=== PATIENT | male | born 1985 | race Caucasian/White ===

== ENCOUNTER 2020-07-24 16:11 | Emergency (ER) | payer MEDICARE, MEDICAID, SELFPAY ==
[2020-07-24 16:12] VITALS: BP 150/99; PULSE 95; RESP 20; TEMP 36.6; O2SAT 98; BMI 38.0
--- NOTE | 2020-07-24 16:18 | HMH.EDGENADL ---
ED Disposition Clinical Impression: Back pain Qualifiers: Back pain location: back pain in unspecified location Chronicity: chronic Back pain laterality: bilateral Qualified Code(s): M54.9 - Dorsalgia, unspecified; G89.29 - Other chronic pain Disposition: Home, Self-Care Condition on Discharge: Good Instructions: DI for Low Back Pain Additional Instructions: Ibuprofen for pain. Follow-up with your primary care provider, call for appointment. Referrals: Dottie Anderson [Primary Care Provider] - - Critical Care Critical Care Time: No Attestation: On , the high probability of a clinically significant, sudden or life threatening deterioration of the following system(s) required my full and direct attention, intervention and personal management. The time I documented below is in addition to time spent performing reported procedures but includes the following listed in this critical care notation. Medical Decision Making - [place] Inquiry Pt receiving controlled substance: No Vital Signs: 07/24/20 16:12 Temperature 97.9 F Temperature Source Oral Pulse Rate [Left Radial] 95 H Respiratory Rate 20 Blood Pressure [Right Arm] 150/99 H Blood Pressure Mean [Right Arm] 116 Blood Pressure Source [Right Arm] Automatic Cuff Blood Pressure Position [Right Arm] Sitting 02 Sat by Pulse Oximetry 98 Oxygen Delivery Method Room Air - Lab Data Lab Results 07/24/20 16:35: Urine Color Yellow, Urine Appearance Clear, Urine pH 6.0, Ur Specific [place] 1.025, Urine Protein Negative, Urine Glucose (UA) Negative, Urine Ketones Negative, Urine Blood Negative, Urine Nitrate Negative, Urine Bilirubin Negative, Urine Urobilinogen 1.0, Ur Leukocyte Esterase Negative, Urine RBC None, Urine WBC None, Ur Squamous Epith Cells None, Urine Bacteria None 07/24/20 16:35: WBC 10.1, RBC 5.79, Hgb 16.3, Hct 49.2, MCV 85.1, MCH 28.2, MCHC 33.1, RDW 13.3, Plt Count 395, MPV 7.0 L, Neut % (Auto) 64.9, Lymph % (Auto) 27.4, [place] % (Auto) 5.0, Eos % (Auto) 1.9, Baso % (Auto) 0.8, Neut # (Auto) 6.6, Lymph # (Auto) 2.8, [place] # (Auto) 0.5, Eos # (Auto) 0.2, Baso # (Auto) 0.1 07/24/20 16:35: Sodium 141, Potassium 3.7, Chloride 100, Carbon Dioxide 33 H, Anion Gap 11.7, BUN 18, Creatinine 1.20, Estimated Creat Clear 149, Estimated GFR 70, Est GFR ( Amer) 84, Glucose 109 H, Calcium 10.2, Total Bilirubin 0.5, AST 58, ALT 121 H, Alkaline Phosphatase 145 H, Total Protein 9.0 H, Albumin 5.0, Globulin 4.0 H, Albumin/Globulin Ratio 1.3, Lipase 114 Result diagrams: 07/24/20 16:35 07/24/20 16:35 - CT Data CT Scan: Abdomen, Pelvis Time Received: 17:[address] Reviewed: Yes: I have viewed the radiologist's interpretation Findings Narrative: CLINICAL INDICATION: flank pain COMPARISON: CT ABDPELW/O CT ABD PELVIS W/O CONTRAST from 03/29/2013 TECHNIQUE: Axial images obtained with sagittal and coronal reformats. All CT scans at the facility use one or more dose reduction, viz: automated exposure control, ma/kV adjustment per patient size (including targeted exams where dose is matched to indication, i.e. head), or iterative reconstruction technique. FINDINGS: Lower thorax: The lower lung lan are clear and there is no pleural fluid. ABDOMEN: Liver: No masses or biliary dilatation. Gallbladder: Nondistended. No radio opaque stones. Pancreas: No masses or peripancreatic fluid collections. Spleen: unremarkable Adrenals: unremarkable Kidneys/ureters: The kidneys are normal size and no calculi and there is no obstructive uropathy. ABDOMEN & PELVIS: Stomach bowel: The stomach is moderately distended with ingested food particles. The small bowel appears normal. The appendix is normal. There is moderate scattered stool seen throughout the colon. There are mild pre diverticular changes of the sigmoid colon with accentuation of the haustra folds. Peritoneum: There is a tiny umbilical hernia containing fat only. Lymph nodes: No enlarge
--- NOTE | 2020-07-24 16:29 | CT_ITS ---
PROCEDURE: CT ABDOMEN PELVIS WO CON CLINICAL INDICATION: flank pain COMPARISON: CT ABDPELW/O CT ABD PELVIS W/O CONTRAST from 03/29/2013 TECHNIQUE: Axial images obtained with sagittal and coronal reformats. All CT scans at the facility use one or more dose reduction, viz: automated exposure control, ma/kV adjustment per patient size (including targeted exams where dose is matched to indication, i.e. head), or iterative reconstruction technique. FINDINGS: Lower thorax: The lower lung lan are clear and there is no pleural fluid. ABDOMEN: Liver: No masses or biliary dilatation. Gallbladder: Nondistended. No radio opaque stones. Pancreas: No masses or peripancreatic fluid collections. Spleen: unremarkable Adrenals: unremarkable Kidneys/ureters: The kidneys are normal size and no calculi and there is no obstructive uropathy. ABDOMEN & PELVIS: Stomach bowel: The stomach is moderately distended with ingested food particles. The small bowel appears normal. The appendix is normal. There is moderate scattered stool seen throughout the colon. There are mild pre diverticular changes of the sigmoid colon with accentuation of the haustra folds. Peritoneum: There is a tiny umbilical hernia containing fat only. Lymph nodes: No enlarged lymph nodes apparent. Vasculature: No evidence of abdominal aortic aneurysm. No retroperitoneal hemorrhage evident. Bones: No acute fracture PELVIS: Reproductive: unremarkable Bladder: The urinary bladder is decompressed but otherwise appears normal. The prostate is normal. Appendix: Normal IMPRESSION: Possible mild constipation, no acute a abdominal or pelvic pathology identified Dictated by: Dr. Marvin Mcgovern MD 07/24/2020 17:07 Dr. Marvin Mcgovern MD in [place] 07/24/2020 17:07
[2020-07-24 16:42] LABS: Microscopic, Urine URINE MICROSCOPIC (MICROSCOPIC)
[2020-07-24 16:46] LABS: Appearance,Urine CLEAR (Clear); Bilirubin,Urine Negative (Negative); Blood, Urine Negative (Negative); Color,Urine YELLOW (Yellow); Glucose,Urine (UA) Negative (Negative); Ketones,Urine Negative (Negative); Leukocyte Esterase,Urine Negative (Negative); Nitrate,Urine Negative (Negative); Protein,Urine Negative (Negative); Specific Gravity, Urine 1.025 (1.005-1.030)
[2020-07-24 17:01] LABS: Basophils # 0.1 K/mm3 (0-0.2); Basophils % 0.8 % (0.1-2.0); Eosinophils # 0.2 K/mm3 (0.0-0.4); Eosinophils % 1.9 % (0.1-12.0); Hematocrit 49.2 % (42.0-52.0); Hemoglobin 16.3 g/dL (14.1-18.0); Lymphocytes # 2.8 K/mm3 (0.7-4.5); Lymphocytes % 27.4 % (10-50); Mean Corpuscular HGB Conc 33.1 g/dL (31.8-35.4); Mean Corpuscular Hemoglobin 28.2 pg (27.0-31.2); Mean Corpuscular Volume 85.1 fl (80-94); Monocytes # 0.5 K/mm3 (0.1-1.0); Neutrophils # 6.6 K/mm3 (1.8-7.8); Neutrophils % 64.9 % (37.0-80.0); Platelet Count 395 K/mm3 (142-424); Red Blood Count 5.79 M/mm3 (4.60-6.20); Red Cell Distribution Width 13.3 % (11.5-17.5); White Blood Count 10.1 K/mm3 (4.8-10.8)
[2020-07-24 17:02] LABS: Chloride 100 mmol/L (98-107)
[2020-07-24 17:03] LABS: Potassium 3.7 mmoL/L (3.5-5.1); Sodium 141 mmol/L (136-145)
[2020-07-24 17:05] LABS: Alanine Aminotransferase 121 U/L (12-78); Alkaline Phosphatase 145 U/L (38-126); Anion Gap 11.7 mEq/L (5-15); Aspartate Amino Transferase 58 U/L (17-59); Bilirubin,Total 0.5 mg/dl (0.2-1.3); Blood Urea Nitrogen 18 mg/dl (9-20); Carbon Dioxide 33 mmol/L (22.0-30.0); Creatinine Clearance Estimated 149 mL/min (50-200); Estimated Glomerular Filt Rate 70 ml/min (>60); GFR (African American) 84 ML/MIN (>60); Lipase 114 U/L (23-300)
[2020-07-24 17:06] LABS: Albumin/Globulin Ratio 1.3 (1.1-1.8); Calcium 10.2 mg/dl (8.4-10.2); Glucose 109 mg/dl (74-100)
[2020-07-24 17:39] VITALS: BP 116/84; PULSE 76; RESP 18; TEMP 36.6; O2SAT 97
== END 2020-07-24 17:40 | disposition home or self-care (01) ==
PROVIDERS: Emergency Provider Emergency Medicine; PCP Family Medicine
DX: M54.9 Dorsalgia, unspecified (principal); G89.29 Other chronic pain; Z88.8 Allergy status to other drugs, medicaments and biological substances
CPT/HCPCS: 74176; 80053; 81001; 83690; 85025; 99283

== ENCOUNTER 2021-03-23 16:30 | Emergency (ER) | payer MEDICARE, MEDICAID, SELFPAY ==
[2021-03-23 16:39] VITALS: BP 151/96; PULSE 85; RESP 18; TEMP 36.6; O2SAT 98; BMI 42.8
[2021-03-23 16:56] LABS: Microscopic, Urine URINE MICROSCOPIC (MICROSCOPIC)
[2021-03-23 16:59] LABS: Appearance,Urine CLEAR (Clear); Basophils # 0.1 K/mm3 (0-0.2); Basophils % 0.7 % (0.1-2.0); Bilirubin,Urine Negative (Negative); Blood, Urine Negative (Negative); Color,Urine YELLOW (Yellow); Eosinophils # 0.1 K/mm3 (0.0-0.4); Eosinophils % 1.1 % (0.1-12.0); Glucose,Urine (UA) Negative (Negative); Hematocrit 47.7 % (42.0-52.0); Hemoglobin 15.7 g/dL (14.1-18.0); Ketones,Urine Negative (Negative); Leukocyte Esterase,Urine Negative (Negative); Lymphocytes % 20.3 % (10-50); Mean Corpuscular HGB Conc 32.9 g/dL (31.8-35.4); Mean Corpuscular Hemoglobin 28.3 pg (27.0-31.2); Mean Corpuscular Volume 85.9 fl (80-94); Mean Platelet Volume 7.8 fl (7.4-10.4); Monocytes # 0.4 K/mm3 (0.1-1.0); Monocytes % 4.1 % (1.7-9.3); Neutrophils # 7.1 K/mm3 (1.8-7.8); Neutrophils % 73.7 % (37.0-80.0); Nitrate,Urine Negative (Negative); Platelet Count 398 K/mm3 (142-424); Protein,Urine Negative (Negative); Red Blood Count 5.55 M/mm3 (4.60-6.20); Red Cell Distribution Width 13.6 % (11.5-17.5); Urobilinogen,Urine 0.2 EU/dl (0.2); White Blood Count 9.6 K/mm3 (4.8-10.8)
[2021-03-23 17:08] LABS: Bacteria,Urine Trace /lpf
[2021-03-23 17:12] LABS: Alanine Aminotransferase 58 U/L (12-78); Albumin Level 4.5 g/dl (3.5-5.0); Albumin/Globulin Ratio 1.2 (1.1-1.8); Alkaline Phosphatase 117 U/L (38-126); Aspartate Amino Transferase 92 U/L (17-59); Bilirubin,Total 0.5 mg/dl (0.2-1.3); Blood Urea Nitrogen 16 mg/dl (9-20); Calcium 9.4 mg/dl (8.4-10.2); Carbon Dioxide 31 mmol/L (22.0-30.0); Chloride 100 mmol/L (98-107); Creatinine Clearance Estimated 117 mL/min (50-200); Estimated Glomerular Filt Rate 97 ml/min (>60); GFR (African American) 118 ML/MIN (>60); Globulin 3.8 g/dL (1.3-3.2); Glucose 106 mg/dl (74-100); Sodium 143 mmol/L (136-145); Total Protein,Serum 8.3 g/dl (6.3-8.2)
--- NOTE | 2021-03-23 19:09 | HMH.EDGENADL ---
ED Disposition Instructions: DI for Acute Abdominal Pain Attestation: On 03/23/21, the high probability of a clinically significant, sudden or life threatening deterioration of the following system(s) required my full and direct attention, intervention and personal management. The time I documented below is in addition to time spent performing reported procedures but includes the following listed in this critical care notation. Medical Decision Making Vital Signs: 03/23/21 16:39 Temperature 97.8 F Temperature Source Oral Pulse Rate [Right] 85 Respiratory Rate 18 Blood Pressure [Right Arm] 151/96 H Blood Pressure Mean [Right Arm] 114 02 Sat by Pulse Oximetry 98 Oxygen Delivery Method Room Air - Lab Data Lab Results 03/23/21 16:45: Urine Color Yellow, Urine Appearance Clear, Urine pH 7.0, Ur Specific [place] 1.020, Urine Protein Negative, Urine Glucose (UA) Negative, Urine Ketones Negative, Urine Blood Negative, Urine Nitrate Negative, Urine Bilirubin Negative, Urine Urobilinogen 0.2, Ur Leukocyte Esterase Negative, Urine RBC None, Urine WBC None, Ur Squamous Epith Cells None, Urine Bacteria Trace 03/23/21 16:45: WBC 9.6, RBC 5.55, Hgb 15.7, Hct 47.7, MCV 85.9, MCH 28.3, MCHC 32.9, RDW 13.6, Plt Count 398, MPV 7.8, Neut % (Auto) 73.7, Lymph % (Auto) 20.3, [place] % (Auto) 4.1, Eos % (Auto) 1.1, Baso % (Auto) 0.7, Neut # (Auto) 7.1, Lymph # (Auto) 2.0, [place] # (Auto) 0.4, Eos # (Auto) 0.1, Baso # (Auto) 0.1 03/23/21 16:45: Sodium 143, Potassium 4.0, Chloride 100, Carbon Dioxide 31 H, Anion Gap 16.0 H, BUN 16, Creatinine 0.90, Estimated Creat Clear 117, Estimated GFR 97, Est GFR ( Amer) 118, Glucose 106 H, Calcium 9.4, Total Bilirubin 0.5, AST 92 H, ALT 58, Alkaline Phosphatase 117, Total Protein 8.3 H, Albumin 4.5, Globulin 3.8 H, Albumin/Globulin Ratio 1.2 Result diagrams: 03/23/21 16:45 03/23/21 16:45 General Adult HPI - General Chief complaint: Abdominal Pain Stated complaint: abd pain Time Seen by Provider: 03/23/21 19:09 Mode of Arrival: Ambulatory Limitations: No Limitations Description of Symptoms (Recalled from ER Triage Doc. by RN): c/o intense upper abdominal pain that started ~1 hour ago, pt took a pepcid at home but states it made it worse. denies N/V/D & fevers. - Related Data Home Medications Medication Instructions Recorded Confirmed Buprenorphine HCl/Naloxone HCl 1.5 film SL DAILY 07/24/20 07/24/20 [Buprenorp-Nalox 8-2 mg Sl Film] Omeprazole [Omeprazole 20mg Tab] 20 mg PO DAILY 07/24/20 07/24/20 Allergies Allergy/AdvReac Type Severity Reaction Status Date / Time TRAMADOL Allergy Intermediate I-ITCHING Uncoded 07/17/17 15:02 From HALDOL Allergy Unknown I-RASH Uncoded 07/17/17 15:02 [facility] History - Hepatitis A Screen Drug use history?: No High risk sexual behaviors?: No History of sexually transmitted infection?: No Currently employed?: No Childcare worker?: No Do you have indoor plumbing?: Yes Do you have electricity?: Yes Attestation statement:: This patient has been screened for Hepatitis A risk factors. Medical History: Denies:: Diabetes Mellitus Type 1, Diabetes Mellitus Type 2 - Social History Smoking Status: Current every day smoker Tobacco Type: smokeless tobacco # Packs/Day (cigarettes): 1 Alcohol Intake: never Substance Use Type: heroin, IV drugs Occupational Status: disabled
[2021-03-23 19:10] VITALS: BP 0/0; PULSE 0; RESP 0; TEMP -17.7; TEMP 0
--- NOTE | 2021-03-23 19:19 | PC.NURSE ---
Pt not in room at this time, dispatch called.
== END 2021-03-23 19:30 | disposition left against medical advice (07) ==
PROVIDERS: Emergency Provider Emergency Medicine; PCP Family Medicine
DX: Z53.21 Procedure and treatment not carried out due to patient leaving prior to being seen by health care provider (principal); R10.10 Upper abdominal pain, unspecified; R03.0 Elevated blood-pressure reading, without diagnosis of hypertension
CPT/HCPCS: 80053; 81001; 85025; 99282

== ENCOUNTER → 2022-12-14 23:11 | Outpatient (CLI) | payer MEDICARE, SELFPAY ==
[2022-12-14 18:23] LABS: Basophils # 0.1 K/mm3 (0-0.2); Basophils % 1.1 % (0.1-2.0); Eosinophils # 0.3 K/mm3 (0.0-0.4); Hematocrit 44.8 % (42.0-52.0); Lymphocytes # 2.5 K/mm3 (0.7-4.5); Lymphocytes % 39.8 % (10-50); Mean Corpuscular HGB Conc 33.5 g/dL (31.8-35.4); Mean Corpuscular Hemoglobin 28.2 pg (27.0-31.2); Mean Corpuscular Volume 84.2 fl (80-94); Mean Platelet Volume 8.2 fl (7.4-10.4); Monocytes # 0.4 K/mm3 (0.1-1.0); Monocytes % 6.2 % (1.7-9.3); Neutrophils # 3.1 K/mm3 (1.8-7.8); Neutrophils % 48.9 % (37.0-80.0); Platelet Count 354 K/mm3 (142-424); Red Blood Count 5.32 M/mm3 (4.60-6.20); Red Cell Distribution Width 13.4 % (11.5-17.5); White Blood Count 6.4 K/mm3 (4.8-10.8)
[2022-12-14 18:30] LABS: Alanine Aminotransferase 64 U/L (12-78); Albumin Level 4.2 g/dl (3.5-5.0); Albumin/Globulin Ratio 1.4 (1.1-1.8); Alkaline Phosphatase 109 U/L (38-126); Anion Gap 19.1 mEq/L (5-15); Aspartate Amino Transferase 51 U/L (17-59); Bilirubin,Total 0.5 mg/dl (0.2-1.3); Blood Urea Nitrogen 11 mg/dl (9-20); Calcium 9.1 mg/dl (8.4-10.2); Carbon Dioxide 30 mmol/L (22.0-30.0); Chloride 96 mmol/L (98-107); Chol/HDL Ratio 2.2 (1-3.5); Cholesterol 141 mg/dl (140-200); Estimated Glomerular Filt Rate 110 ml/min (>60); GFR (African American) 133 ML/MIN (>60); Glucose 103 mg/dl (74-100); HDL Cholesterol 63 mg/dl (40-60); Potassium 4.1 mmoL/L (3.5-5.1); Sodium 141 mmol/L (136-145); Total Protein,Serum 7.2 g/dl (6.3-8.2); Triglycerides 117 mg/dl (30-150); Uric Acid 4.4 mg/dl (3.5-8.5); VLDL Cholesterol 23 mg/dL (0-40)
[2022-12-14 18:39] LABS: Creatinine,Urine Random 294 mg/dL (Not Estab.)
[2022-12-14 18:43] LABS: Direct LDL Cholesterol 61.62 mg/dL (100-129)
[2022-12-14 18:51] LABS: 25-OH Vitamin D, Total 19.5 ng/mL (30-100)
[2022-12-14 18:52] LABS: Hemoglobin A1C 5.2 % (4.0-6.0)
[2022-12-14 19:04] LABS: Thyroid Stimulating Hormone 1.69 uIU/mL (0.465-4.68)
[2022-12-14 19:23] LABS: Vitamin B12 464 pg/mL (239-931)
[2022-12-16 12:10] LABS: Testosterone,Total 50 ng/dL (264-916)
== END ==
PROVIDERS: PCP Nurse Practitioner; Visit Provider Nurse Practitioner
DX: E66.9 Obesity, unspecified (principal); G89.29 Other chronic pain; I10 Essential (primary) hypertension; K21.9 Gastro-esophageal reflux disease without esophagitis; M54.9 Dorsalgia, unspecified; R53.83 Other fatigue; R79.89 Other specified abnormal findings of blood chemistry; R73.01 Impaired fasting glucose; Z68.41 Body mass index [BMI] 40.0-44.9, adult
CPT/HCPCS: 80053; 80061; 82043; 82306; 82570; 82607; 83036; 84403; 84443; 84550; 85025

== ENCOUNTER → 2022-12-19 12:02 | Outpatient (CLI) | payer MEDICARE, SELFPAY | LOC: RT 12:04 | PROVIDERS: PCP Nurse Practitioner; Visit Provider Nurse Practitioner | DX: R00.2 Palpitations (principal); R94.31 Abnormal electrocardiogram [ECG] [EKG] | CPT/HCPCS: 93225; 93226 ==

== ENCOUNTER → 2023-01-02 14:11 | Outpatient (CLI) | payer MEDICARE, SELFPAY | LOC: RT 14:11 | PROVIDERS: PCP Nurse Practitioner; Visit Provider Nurse Practitioner | DX: R00.2 Palpitations (principal); R94.31 Abnormal electrocardiogram [ECG] [EKG] | CPT/HCPCS: 93306 ==

== ENCOUNTER → 2023-02-14 10:06 | Outpatient (CLI) | payer MEDICARE, SELFPAY ==
[2023-02-14 20:06] LABS: Basophils # 0.1 K/mm3 (0-0.2); Basophils % 0.9 % (0.1-2.0); Eosinophils # 0.3 K/mm3 (0.0-0.4); Eosinophils % 4.4 % (0.1-12.0); Hematocrit 43.5 % (42.0-52.0); Hemoglobin 14.1 g/dL (14.1-18.0); Lymphocytes # 2.3 K/mm3 (0.7-4.5); Lymphocytes % 40.3 % (10-50); Mean Corpuscular HGB Conc 32.4 g/dL (31.8-35.4); Mean Corpuscular Hemoglobin 27.8 pg (27.0-31.2); Mean Corpuscular Volume 85.7 fl (80-94); Mean Platelet Volume 7.9 fl (7.4-10.4); Monocytes # 0.4 K/mm3 (0.1-1.0); Monocytes % 6.3 % (1.7-9.3); Neutrophils # 2.8 K/mm3 (1.8-7.8); Neutrophils % 48.2 % (37.0-80.0); Platelet Count 352 K/mm3 (142-424); Red Blood Count 5.07 M/mm3 (4.60-6.20); Red Cell Distribution Width 13.6 % (11.5-17.5); White Blood Count 5.8 K/mm3 (4.8-10.8)
[2023-02-16 13:17] LABS: Estradiol 41.6 pg/mL (7.6-42.6); Prolactin 19.9 ng/mL (4.0-15.2)
[2023-02-20 04:19] LABS: Testosterone, Total, LC/MS 549 ng/dL (.)
[2023-02-21 19:14] LABS: 1,25 Dihydroxy Vitamin D 56 pg/mL (.); 1,25-Dihydroxy, Vitamin D-2 <10 pg/mL (.); 1,25-Dihydroxy, Vitamin D-3 54 pg/mL (.)
== END ==
PROVIDERS: PCP Nurse Practitioner; Visit Provider Nurse Practitioner
DX: G89.29 Other chronic pain (principal); M54.9 Dorsalgia, unspecified; R53.83 Other fatigue; R79.89 Other specified abnormal findings of blood chemistry; E66.9 Obesity, unspecified; Z68.41 Body mass index [BMI] 40.0-44.9, adult
CPT/HCPCS: 82652; 82670; 84146; 84403; 85025

== ENCOUNTER 2023-07-31 10:26 | Outpatient (CLI) | payer MEDICARE, SELFPAY ==
[2023-07-31 19:42] LABS: Basophils # 0.1 K/mm3 (0-0.2); Basophils % 0.9 % (0.1-2.0); Eosinophils # 0.2 K/mm3 (0.0-0.4); Eosinophils % 3.4 % (0.1-12.0); Hematocrit 44.3 % (42.0-52.0); Hemoglobin 14.5 g/dL (14.1-18.0); Lymphocytes # 1.8 K/mm3 (0.7-4.5); Lymphocytes % 32.3 % (10-50); Mean Corpuscular HGB Conc 32.8 g/dL (31.8-35.4); Mean Corpuscular Hemoglobin 28.8 pg (27.0-31.2); Mean Corpuscular Volume 87.8 fl (80-94); Mean Platelet Volume 8.6 fl (7.4-10.4); Monocytes # 0.4 K/mm3 (0.1-1.0); Monocytes % 6.4 % (1.7-9.3); Neutrophils # 3.3 K/mm3 (1.8-7.8); Platelet Count 367 K/mm3 (142-424); Red Blood Count 5.04 M/mm3 (4.60-6.20); Red Cell Distribution Width 13.6 % (11.5-17.5); White Blood Count 5.7 K/mm3 (4.8-10.8)
[2023-07-31 21:46] LABS: Alanine Aminotransferase 35 U/L (12-78); Albumin/Globulin Ratio 1.4 (1.1-1.8); Alkaline Phosphatase 97 U/L (38-126); Anion Gap 6.7 mEq/L (5-15); Aspartate Amino Transferase 32 U/L (17-59); Bilirubin,Total 0.3 mg/dl (0.2-1.3); Blood Urea Nitrogen 11 mg/dl (9-20); Calcium 8.6 mg/dl (8.4-10.2); Carbon Dioxide 32 mmol/L (22.0-30.0); Chloride 102 mmol/L (98-107); Estimated Glomerular Filt Rate 128 ml/min (>60); GFR (African American) 154 ML/MIN (>60); Globulin 2.9 g/dL (1.3-3.2); Glucose 84 mg/dl (74-100); Potassium 3.7 mmoL/L (3.5-5.1); Sodium 137 mmol/L (136-145); Total Protein,Serum 6.9 g/dl (6.3-8.2)
[2023-07-31 22:17] LABS: Thyroid Stimulating Hormone 1.85 uIU/mL (0.465-4.68)
== END 2023-07-31 23:59 ==
LOC: LAB.DROPOF 08-01 10:29
PROVIDERS: PCP Nurse Practitioner; Visit Provider Nurse Practitioner
DX: K59.00 Constipation, unspecified (principal); R10.32 Left lower quadrant pain; R40.0 Somnolence
CPT/HCPCS: 80053; 84443; 85025

== ENCOUNTER 2023-08-15 08:33 | Outpatient (CLI) | payer MEDICARE, SELFPAY ==
--- NOTE | 2023-08-15 08:33 | CT_ITS ---
FINAL REPORT CLINICAL HISTORY: constipation, LLQ abdominal pain COMPARISON: 07/26/2020 FINDINGS: CT OF THE ABDOMEN AND PELVIS WITH CONTRAST Axial CT images of the abdomen and pelvis were obtained after the administration of oral and iv contrast. Coronal and sagittal reformatted images were also obtained and reviewed.This study was performed with techniques to keep radiation doses as low as reasonably achievable (ALARA). Individualized dose reduction techniques using automated exposure control or adjustment of mA and/or kV according to the patient's size were employed. Abdomen: The lung bases are clear. The heart is normal in size. The liver has an unremarkable appearance, with mild biliary ductal enlargement, likely post cholecystectomy change. The gallbladder has been surgically resected. The spleen is unremarkable. No adrenal mass is present. The pancreas has an unremarkable appearance. The kidneys are normal, without evidence of mass or hydronephrosis. The aorta is normal in caliber. There is no free fluid or adenopathy. No mass or abnormal fluid collection is seen. Pelvis: The appendix is normal in appearance. A moderate amount of stool is noted throughout the colon. The urinary bladder is unremarkable. No inflammatory process is seen. There is no evidence of mass or adenopathy. There is no evidence of bowel obstruction. IMPRESSION: Moderate stool burden in the colon. Mild biliary ductal dilatation, likely post cholecystectomy change. Reviewed, Interpreted and Dictated by Bobby Burgos III, MD Transcribed by Paula Yoon Authenticated and [facility]
[2023-08-15] MEDS: IOPAMIDOL-370 (76%);100ML BOTTLE 75 ML IV (09:10)
[2023-08-15] MEDS: SODIUM CHLORIDE 0.9% 10ML SYR (RAD ONLY) 10 ML IV (09:10)
== END 2023-08-15 23:59 ==
LOC: RAD 08:33
PROVIDERS: PCP Nurse Practitioner; Visit Provider Nurse Practitioner
DX: K59.00 Constipation, unspecified (principal); R10.32 Left lower quadrant pain
CPT/HCPCS: 74177; Q9967

== ENCOUNTER 2024-05-22 18:34 | Emergency (ER) | payer MEDICARE, MEDICAID, SELFPAY ==
[2024-05-22 18:35] VITALS: BP 139/84; PULSE 77; RESP 18; TEMP 37.2; O2SAT 99; BMI 40.1
--- NOTE | 2024-05-22 18:44 | ED_ITS ---
Discharge Plan Disposition Patient Disposition: Home, Self-Care Condition: Good Prescriptions Prescriptions: New doxycycline hyclate 100 mg capsule 100 mg PO BID 7 Days Qty: 14 0RF No Action buprenorphine-naloxone 8-2 mg tablet, sublingual 1.25 tab sublingual DAILY omeprazole 20 mg capsule,delayed release(DR/EC) 20 mg PO DAILY Deplin FC 15 mg capsule 15 mg PO DAILY Qty: 30 2RF temazepam 15 mg capsule 15 mg PO HS PRN (Reason: sleep) Qty: 30 0RF losartan 50 mg tablet 50 mg PO DAILY Qty: 90 2RF Referrals Follow up/Referrals: Aria Kidd APRN [Primary Care Provider] - See instructions Activity Restrictions/Add. Instructions Additional Instructions/Restrictions: As we discussed, it is possible your symptoms are attributable to UTI, given that you are having some pain with urination and pain that starts in your kidney area and radiates to her groin. Your urinalysis does show some bacteria in your urine. There are not other systemic signs of infection and your CT does not show any kidney stones. I have added on gonorrhea and Chlamydia testing and after our discussion we will go ahead and treat a potential UTI as if it were an STI as this will cover common organisms and sexually transmitted organisms. Please follow-up with your PCP. Please return with any new or worsening symptoms. Clinical Impressions Clinical Impression: Dysuria Instructions Patient Instructions: DI for Urinary Tract Infection (UTI) Print Language Print Language: Sinhala Discharge ED Provider: Joseph Zarate General Adult HPI General Chief complaint: Urogenital-Male Stated complaint: Pain left side,lower back radiating down to groin Time Seen by Provider: 05/22/24 18:44 History of Present Illness HPI narrative: The patient presents with a chief complaint of left-sided pain under the rib, radiating to the back and occasionally to the testicles, which has been ongoing for about a year. The pain is intermittent and comes and goes. He also reports experiencing nausea, frequent urination, and difficulty initiating urination. He mentions that it hurts to urinate. He has a history of multiple doctor visits for this issue, with a presumptive diagnosis of kidney stones. However, no definitive diagnosis has been made. He has had a previous CT scan, but it was focused on the gastrointestinal area due to concurrent stomach pain at the time. He is unsure if the kidneys were visualized during that scan. The CT scan was performed at [facility] in [place]. Additionally, he denies any injuries, cough, shortness of breath, numbness, or tingling in the legs. The pain does not radiate down the leg but remains localized around the left rib and back area. He describes the pain as a straight shot down to the testicle area. He also indicates a specific spot on the ribs that is painful. Please note that above description of symptoms, in this electronic medical record under categorization of recalled from ER triage doctor by RN are reflective of an initial nursing assessment, however, is not reflective of my full history and physical exam that was personally taken and clarified. Consequentially, this preceding description of symptoms, which may include the patient's categorized chief complaint in the EMR, do not reflect my personal clinical impression, and the ultimate description of history of present illness and patient stated complaints should be deferred to this section of the note. Unless stated otherwise or congruent with this section of the note, additional signs, symptoms, or incongruence should be interpreted as inaccurate with my clinical impression. Related Data Home Medications ?Medication ?Instructions ?Recorded ?Confirmed buprenorphine 8 mg-naloxone 2 mg 1.25 tab sublingual DAILY 03/04/24 04/28/24 sublingual tablet omeprazole 20 mg capsule,delayed 20 mg PO DAILY 03/04/24 04/28/24 release Previous Rx's ?Medication ?Instructions ?Recorded losartan 50 mg tablet 50 mg PO DAILY #90 tabs 02/29/24 levomefolate calcium 15 mg capsule 15 mg PO DAILY #30 caps 03/18/24 (Deplin FC) temazepam 15 mg capsule 15 mg PO HS PRN sleep #30 caps 04/28/24 doxycycline hyclate 100 mg capsule 100 mg PO BID 7 days #14 caps 05/22/24 Allergies Allergy/AdvReac Type Severity Reaction Status Date / Time TRAMADOL Allergy Intermediate I-ITCHING Uncoded 04/28/24 14:27 From HALDOL Allergy Unknown I-RASH Uncoded 04/28/24 14:27 [facility] Disclaimer: The information contained in this section may have been updated after the patient was seen, as this information can be updated by other users. Medical History Nightmares associated with chronic post-traumatic stress disorder Reynaldo described having Night Terrors every night that he wakes up in a panic since returning from [place]. OCD (obsessive compulsive disorder) Reynaldo explained that he has has OCD sxs since he was a child where he counts numbers and sees shapes, especially corners. MDD (major depressive disorder), recurrent episode, with atypical features Reynaldo reported having depression since his teen years. 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 Constipation Vitamin D deficiency PTSD (post-traumatic stress disorder) Reynaldo reported having PTSD sxs since 2008 when returning from deployment in [place] for the . History of heroin abuse Reynaldo reported being 8 yrs clean of Heroin as of 01/29/2024. He currently takes Suboxone 8 mg for 8 yrs, which has helped him maintain recovery. He is working to wean himself off of the Suboxone. Vision disturbance Snoring Has daytime drowsiness Snoring Has daytime drowsiness Abnormal EKG Palpitations Fatigue Low testosterone Obesity GERD (gastroesophageal reflux disease) Essential hypertension Surgical History Hx of cholecystectomy Social History Smoking Status: Never smoker alcohol intake: never substance use type: former substance user, heroin and IV drugs current occupational status: disabled Travel in the last 8 weeks: None Other Medical History Have you received the Flu Vaccine for this season: No Have you received the Pneumonia Vaccine: No ROS Obtained: Yes other As per HPI Physical Exam General General appearance: alert and in no apparent distress Head Head exam: atraumatic and normocephalic Eye Eye exam: Present normal appearance Neck Neck exam: Present normal inspection Chest Chest inspection: Present normal inspection and symmetric chest wall rise Respiratory Respiratory exam: Present normal lung sounds bilaterally; Absent respiratory distress Cardiovascular Cardiovascular exam: Present regular rate and normal rhythm Abdominal Exam Abdominal exam: Present soft Neurological Exam Neurological exam: Present alert and oriented X3 Psychiatric Psychiatric exam: Present normal affect and normal mood Skin Skin exam: Present warm and dry Other Other exam information: Left CVA tenderness to palpation, no midline spinal tenderness to palpation Medical Decision Making Medical Records Medical records reviewed: Yes I reviewed the patient's medical records. Screening: Per USPSTF and CDC recommendations, given the prevalence of disease in our region, it is our hospital?s policy to screen for HIV and viral Hepatitis for all patients aged 18 and over and those with ongoing risk factors. [place] Inquiry Pt receiving controlled substance: No Vital Signs: 05/22/24 18:35 05/22/24 20:54 Temperature 98.9 F 98.0 F Temperature Source Oral Oral Pulse Rate 80 Pulse Rate [Right] 77 Respiratory Rate 18 18 Blood Pressure 138/85 Blood Pressure [Right Arm] 139/84 Blood Pressure Mean [Right Arm] 102 02 Sat by Pulse Oximetry 99 Oxygen Delivery Method Room Air Room Air Lab Data Lab Results 05/22/24 18:40: Urine Color Yellow, Urine Appearance Clear, Urine pH 6.0, Ur Specific [place] >= 1.030, Urine Protein Negative, Urine Glucose (UA) Negative, Urine Ketones Negative, Urine Blood Negative, Urine Nitrate Negative, Urine Bilirubin Negative, Urine Urobilinogen 1.0, Ur Leukocyte Esterase Negative, Urine RBC 3-5, Urine WBC Occasional, Ur Squamous Epith Cells Occasional, Urine Bacteria 1+, Urine Mucus 1+ 05/22/24 19:05: WBC 6.7, RBC 5.28, Hgb 15.1, Hct 44.1, MCV 83.6, MCH 28.7, MCHC 34.4, RDW 13.8, Plt Count 317, MPV 7.2 L, Neut % (Auto) 50.8, Lymph % (Auto) 36.8, [place] % (Auto) 6.7, Eos % (Auto) 4.3, Baso % (Auto) 1.3, Neut # (Auto) 3.4, Lymph # (Auto) 2.5, [place] # (Auto) 0.4, Eos # (Auto) 0.3, Baso # (Auto) 0.1, Sodium 140, Potassium 3.7, Chloride 102, Carbon Dioxide 34 H, Anion Gap 7.7, BUN 10, Creatinine 0.90, Estimated Creat Clear 204, Estimated GFR 95, Est GFR ( Amer) 116, Glucose 100, Calcium 8.9, Total Bilirubin 0.6, AST 29, ALT 28, Alkaline Phosphatase 72, Total Protein 7.7, Albumin 4.3, Globulin 3.4 H, Albumin/Globulin Ratio 1.3, Lipase 49, HIV 1&2 Antibody Rapid Nonreactive 05/22/24 19:05 05/22/24 19:05 Orders (Tests/Meds): ED MEDICATIONS Discontinued Medications Generic Name Dose Route Start Last Admin Trade Name Freq PRN Reason Stop Dose Admin Ceftriaxone Sodium 500 mg 05/22/24 20:34 05/22/24 20:36 Ceftriaxone 500mg Vial IM 05/22/24 20:35 Not Given ONCE ONE Ceftriaxone Sodium 500 mg/ 50 mls @ 100 mls/hr 05/22/24 20:36 05/22/24 20:44 Sodium Chloride IV 05/22/24 20:37 100 mls/hr ONCE ONE Administration Ketorolac Tromethamine 15 mg 05/22/24 18:51 05/22/24 19:31 Ketorolac 30mg/Ml Vial IV 05/22/24 18:52 15 mg ONCE ONE Administration Lidocaine HCl 0 ml 05/22/24 20:34 05/22/24 20:36 Lidocaine 1% 5ml Pf Vial IM 05/22/24 20:35 Not Given ONCE ONE ORDERS Category Date Time Status CT abdomen pelvis wo con Stat Cat Scan 05/22/24 18:51 Completed CBC w/Auto Diff [Complete Blood Count Auto Diff] Stat Lab 05/22/24 19:05 Completed CMP [Comprehensive Metabolic Panel] Stat Lab 05/22/24 19:05 Completed HIV (1&2) Antibody Rapid Stat Lab 05/22/24 19:05 Completed Hep C Ab with Reflex to RNA Stat Lab 05/22/24 19:05 Received Lipase Stat Lab 05/22/24 19:05 Completed Urinalysis and Microscopic Stat Lab 05/22/24 18:40 Completed Urine Culture Stat Micro 05/22/24 18:40 Received Medical Decision Narrative: Patient with history and exam per above presenting for evaluation of left flank pain radiating to groin, dysuria Diagnoses considered include urolithiasis, pyelonephritis, cystitis, mechanical low back pain, among others ED workup and treatment included: ED MEDICATIONS Discontinued Medications Generic Name Dose Route Start Last Admin Trade Name Freq PRN Reason Stop Dose Admin Ceftriaxone Sodium 500 mg 05/22/24 20:34 05/22/24 20:36 Ceftriaxone 500mg Vial IM 05/22/24 20:35 Not Given ONCE ONE Ceftriaxone Sodium 500 mg/ 50 mls @ 100 mls/hr 05/22/24 20:36 05/22/24 20:44 Sodium Chloride IV 05/22/24 20:37 100 mls/hr ONCE ONE Administration Ketorolac Tromethamine 15 mg 05/22/24 18:51 05/22/24 19:31 Ketorolac 30mg/Ml Vial IV 05/22/24 18:52 15 mg ONCE ONE Administration Lidocaine HCl 0 ml 05/22/24 20:34 05/22/24 20:36 Lidocaine 1% 5ml Pf Vial IM 05/22/24 20:35 Not Given ONCE ONE ORDERS Category Date Time Status CT abdomen pelvis wo con Stat Cat Scan 05/22/24 18:51 Completed CBC w/Auto Diff [Complete Blood Count Auto Diff] Stat Lab 05/22/24 19:05 Completed CMP [Comprehensive Metabolic Panel] Stat Lab 05/22/24 19:05 Completed HIV (1&2) Antibody Rapid Stat Lab 05/22/24 19:05 Completed Hep C Ab with Reflex to RNA Stat Lab 05/22/24 19:05 Received Lipase Stat Lab 05/22/24 19:05 Completed Urinalysis and Microscopic Stat Lab 05/22/24 18:40 Completed Urine Culture Stat Micro 05/22/24 18:40 Received Labs were independently interpreted by me, significant for pyuria, bacteriuria Imaging was independently visualized and interpreted by me, significant for no acute findings Please refer to radiology report for full details. My clinical impression at this time is most consistent with likely cystitis, possible sexually transmitted infection, will treat empirically after shared decision making I discussed my clinical impression with patient and answered all questions. At this time, the evidence for any other entities in the differential is insufficient to warrant any further testing or ED observation. This was explained to the patient. The patient was advised that persistent or worsening symptoms require further evaluation. Critical Care Critical Care Time Critical Care Time: No
--- NOTE | 2024-05-22 18:51 | CT_ITS ---
PROCEDURE INFORMATION: Exam: CT Abdomen And Pelvis Without Contrast Exam date and time: 05/22/2024 6:57 PM Age: 38 years old Clinical indication: Pain; Other: Lt flank; Additional info: L flank pain, dysuria TECHNIQUE: Imaging protocol: Computed tomography of the abdomen and pelvis without contrast. Total images: 334 Radiation optimization: All CT scans at this facility use at least one of these dose optimization techniques: automated exposure control; mA and/or kV adjustment per patient size (includes targeted exams where dose is matched to clinical indication); or iterative reconstruction. COMPARISON: CT ABDOMEN PELVIS W CON 08/15/2023 8:56 AM FINDINGS: Lungs: Lung bases are clear. Heart: Normal heart size. Liver: Normal. No mass. Gallbladder and biliary ducts: Status post cholecystectomy. Stable mild biliary ectasia compatible with post cholecystectomy status. Pancreas: Normal. No ductal dilation. Spleen: Calcified splenic granuloma. No splenomegaly. Adrenal glands: Normal. No mass. Kidneys and ureters: No hydronephrosis, nephrolithiasis, or perinephric fluid. No discrete renal mass. No ureteral stones. Stomach and bowel: Unremarkable stomach and duodenum. No ileus or bowel obstruction. Unremarkable small bowel. Unremarkable colon and rectum. Appendix: Normal appendix. Intraperitoneal space: Unremarkable. No free air. No significant fluid collection. Vasculature: The abdominal aorta is normal in caliber. Pelvic phleboliths. Lymph nodes: Unremarkable. No enlarged lymph nodes. Urinary bladder: Collapsed bladder. Reproductive: Nonenlarged prostate. Bones/joints: Moderate degenerative disc disease L4-L5 with secondary mild acquired spinal canal stenosis. No acute osseous abnormality. Soft tissues: Very tiny fat containing umbilical hernia. IMPRESSION: 1. No acute intra-abdominal or pelvic process. 2. No nephrolithiasis or obstructive uropathy. 3. Additional chronic and incidental findings.
[2024-05-22 18:55] LABS: Microscopic, Urine URINE MICROSCOPIC (MICROSCOPIC)
--- NOTE | 2024-05-22 18:55 | PC.NURSE ---
PT TO CT
[2024-05-22 18:56] LABS: Appearance,Urine CLEAR (Clear); Bilirubin,Urine Negative (Negative); Blood, Urine Negative (Negative); Color,Urine YELLOW (Yellow); Glucose,Urine (UA) Negative (Negative); Ketones,Urine Negative (Negative); Leukocyte Esterase,Urine Negative (Negative); Nitrate,Urine Negative (Negative); Protein,Urine Negative (Negative); Specific Gravity, Urine >= 1.030 (1.005-1.030)
--- NOTE | 2024-05-22 19:18 | PC.NURSE ---
pt back from ct scan
[2024-05-22 19:27] LABS: Basophils # 0.1 K/mm3 (0-0.2); Basophils % 1.3 % (0.1-2.0); Eosinophils # 0.3 K/mm3 (0.0-0.4); Eosinophils % 4.3 % (0.1-12.0); Hematocrit 44.1 % (42.0-52.0); Hemoglobin 15.1 g/dL (14.1-18.0); Lymphocytes # 2.5 K/mm3 (0.7-4.5); Lymphocytes % 36.8 % (10-50); Mean Corpuscular HGB Conc 34.4 g/dL (31.8-35.4); Mean Corpuscular Hemoglobin 28.7 pg (27.0-31.2); Mean Corpuscular Volume 83.6 fl (80-94); Mean Platelet Volume 7.2 fl (7.4-10.4); Monocytes # 0.4 K/mm3 (0.1-1.0); Monocytes % 6.7 % (1.7-9.3); Neutrophils # 3.4 K/mm3 (1.8-7.8); Neutrophils % 50.8 % (37.0-80.0); Platelet Count 317 K/mm3 (142-424); Red Blood Count 5.28 M/mm3 (4.60-6.20); Red Cell Distribution Width 13.8 % (11.5-17.5); White Blood Count 6.7 K/mm3 (4.8-10.8)
[2024-05-22 19:28] LABS: Albumin Level 4.3 g/dl (3.5-5.0); Chloride 102 mmol/L (98-107); Potassium 3.7 mmoL/L (3.5-5.1); Sodium 140 mmol/L (136-145)
[2024-05-22 19:30] LABS: Blood Urea Nitrogen 10 mg/dl (9-20)
[2024-05-22 19:31] LABS: Alanine Aminotransferase 28 U/L (12-78); Albumin/Globulin Ratio 1.3 (1.1-1.8); Alkaline Phosphatase 72 U/L (38-126); Anion Gap 7.7 mEq/L (5-15); Aspartate Amino Transferase 29 U/L (17-59); Bilirubin,Total 0.6 mg/dl (0.2-1.3); Carbon Dioxide 34 mmol/L (22.0-30.0); Creatinine Clearance Estimated 204 mL/min (50-200); Estimated Glomerular Filt Rate 95 ml/min (>60); GFR (African American) 116 ML/MIN (>60); Globulin 3.4 g/dL (1.3-3.2); Lipase 49 U/L (23-300); Total Protein,Serum 7.7 g/dl (6.3-8.2)
[2024-05-22] MEDS: KETOROLAC 30MG/ML VIAL 15 MG IV (19:31)
[2024-05-22 19:32] LABS: Bacteria,Urine 1+ /lpf; Mucus,Urine 1+ /lpf; Squamous Epithelial Cell,Urine Occasional #/hpf (0-5); WBC,Urine Occasional #/hpf (0-3)
[2024-05-22 19:32] LABS: Calcium 8.9 mg/dl (8.4-10.2); Glucose 100 mg/dl (74-100)
[2024-05-22] MEDS: SODIUM CHLORIDE 0.9% IV (20:44)
[2024-05-22] MEDS: CEFTRIAXONE SODIUM IV (20:44)
[2024-05-22 20:54] VITALS: BP 138/85; PULSE 80; RESP 18; TEMP 36.7; O2SAT 98
[2024-05-22 21:36] LABS: HIV (1&2) Antibody Rapid NONREACTIVE (NONREACTIVE)
[2024-05-24 08:51] LABS: HCV Ab Non Reactive (Non Reactive)
[2024-05-26 06:11] LABS: Neisseria gonorrhoeae, NAA Negative (Negative)
== END 2024-05-22 21:15 | disposition home or self-care (01) ==
PROVIDERS: Emergency Provider Emergency Medicine; PCP Nurse Practitioner
DX: R30.0 Dysuria (principal); M54.50 Low back pain, unspecified; R11.0 Nausea; R30.9 Painful micturition, unspecified
CPT/HCPCS: 74176; 80053; 81001; 83690; 85025; 86803; 87086; 87389; 87491; 87591; 96374; 96375; 99284; J0696; J1885

== ENCOUNTER 2024-11-13 15:32 | Outpatient (CLI) | payer MEDICARE, MEDICAID, SELFPAY ==
[2024-11-13 18:23] LABS: Basophils # 0.1 K/mm3 (0-0.2); Eosinophils # 0.2 K/mm3 (0.0-0.4); Eosinophils % 2.1 % (0.1-12.0); Hematocrit 44.8 % (42.0-52.0); Hemoglobin 14.6 g/dL (14.1-18.0); Lymphocytes # 2.1 K/mm3 (0.7-4.5); Lymphocytes % 28.4 % (10-50); Mean Corpuscular HGB Conc 32.6 g/dL (31.8-35.4); Mean Corpuscular Hemoglobin 27.9 pg (27.0-31.2); Mean Corpuscular Volume 85.5 fl (80-94); Mean Platelet Volume 10.2 fl (7.4-10.4); Monocytes # 0.5 K/mm3 (0.1-1.0); Monocytes % 6.9 % (1.7-9.3); Neutrophils # 4.4 K/mm3 (1.8-7.8); Neutrophils % 61.3 % (37.0-80.0); Nucleated Red Blood Cells # 0 10^3/uL; Nucleated Red Blood Cells % 0 %; Platelet Count 339 K/mm3 (142-424); Red Blood Count 5.24 M/mm3 (4.60-6.20); Red Cell Distribution Width 12.7 % (11.5-17.5); Red Cell Distribution Width-SD 39.4 fL; White Blood Count 7.2 K/mm3 (4.8-10.8)
[2024-11-13 19:42] LABS: Albumin Level 4.3 g/dl (3.5-5.0); Chloride 101 mmol/L (98-107)
[2024-11-13 19:43] LABS: Potassium 3.7 mmoL/L (3.5-5.1); Sodium 140 mmol/L (136-145)
[2024-11-13 19:45] LABS: Alanine Aminotransferase 26 U/L (12-78); Albumin/Globulin Ratio 1.4 (1.1-1.8); Alkaline Phosphatase 87 U/L (38-126); Anion Gap 11.7 mEq/L (5-15); Aspartate Amino Transferase 30 U/L (17-59); Bilirubin,Total 0.6 mg/dl (0.2-1.3); Blood Urea Nitrogen 13 mg/dl (9-20); Carbon Dioxide 31 mmol/L (22.0-30.0); Cholesterol 144 mg/dl (140-200); Estimated Glomerular Filt Rate 109 ml/min (>60); GFR (African American) 132 ML/MIN (>60); Globulin 3.1 g/dL (1.3-3.2); Iron 98 ug/dL (49-181); Total Protein,Serum 7.4 g/dl (6.3-8.2); Triglycerides 120 mg/dl (30-150); VLDL Cholesterol 24 mg/dL (0-40)
[2024-11-13 19:46] LABS: Calcium 9.4 mg/dl (8.4-10.2); Chol/HDL Ratio 2.1 (1-3.5); Glucose 107 mg/dl (74-100); HDL Cholesterol 68 mg/dl (40-60)
[2024-11-13 19:56] LABS: Total Iron Binding Capacity 353 ug/dL (261-462)
[2024-11-13 20:06] LABS: T4 (Thyroxine) 8.1 ug/dl (5.53-11.0)
[2024-11-13 20:09] LABS: 25-OH Vitamin D, Total 18.5 ng/mL (30-100)
[2024-11-13 20:19] LABS: Thyroid Stimulating Hormone 1.09 uIU/mL (0.465-4.68)
[2024-11-13 20:23] LABS: Ferritin 43.4 ng/ml (17.9-464)
[2024-11-13 20:40] LABS: Vitamin B12 305 pg/mL (239-931)
[2024-11-13 20:58] LABS: Folate 4.58 ng/mL
[2024-11-15 10:19] LABS: Testosterone,Total 186 ng/dL (264-916)
== END 2024-11-13 23:59 | disposition home or self-care (01) ==
LOC: LAB.DROPOF 11-14 12:18
PROVIDERS: PCP Nurse Practitioner Family; Visit Provider Nurse Practitioner Family
DX: I49.9 Cardiac arrhythmia, unspecified (principal); K59.00 Constipation, unspecified; R07.89 Other chest pain; E55.9 Vitamin D deficiency, unspecified
CPT/HCPCS: 80053; 80061; 82306; 82607; 82728; 82746; 83540; 83550; 84146; 84403; 84436; 84443; 85025

== ENCOUNTER 2024-11-17 15:20 | Outpatient (CLI) | payer MEDICARE, MEDICAID, SELFPAY | END 2024-11-17 23:59 | disposition home or self-care (01) | LOC: RT 15:21 | PROVIDERS: PCP Nurse Practitioner; Visit Provider Physician Assistant | DX: R42 Dizziness and giddiness (principal); R00.2 Palpitations; R53.83 Other fatigue | CPT/HCPCS: 93225; 93227 ==

== ENCOUNTER 2024-11-21 14:28 | Outpatient (CLI) | payer MEDICARE, MEDICAID, SELFPAY ==
--- OUTSIDE RECORDS SUMMARY | 2024-11-21 14:30 | XMS_ITS ---
Laboratory report Created on: November 18, 2024 DEBRA BAER : 1985 Sex: Male Author Organization Unknown PROBLEMS Problems List Code Description RESULTS Laboratory Orders Date Order Code Test 2024-11-13 [id number] TESTOSTERONE 2024-11-13 [id number] PROLACTIN Laboratory Results Date LOINC Test Value Unit Reference Range Interpre tation 2024-11-13 [id number] TESTOSTERONE 186 NG/DL [id number] L 2024-11-13 [id number] PROLACTIN 13 NG/ML 3.9-22.7
== END 2024-11-21 23:59 | disposition home or self-care (01) ==
LOC: RT 14:29
PROVIDERS: PCP Nurse Practitioner; Visit Provider Physician Assistant
DX: R42 Dizziness and giddiness (principal); R00.2 Palpitations; R53.83 Other fatigue
CPT/HCPCS: 93270

== ENCOUNTER 2024-12-11 10:25 | Outpatient (CLI) | payer MEDICARE, MEDICAID, SELFPAY ==
--- NOTE | 2024-12-11 10:28 | CA_ITS ---
APPROVED REPORT EXAM: Comprehensive 2D, Doppler, and color-flow Echocardiogram User Experience Designer: DARBY Yates, RVS Ht: 5 ft 10 in Wt: 273lbs BSA: 2.38 BP: 127/87 mmHg Indications: Papitations, chest pain, HTN, Dizziness, Fatigue 2D Dimensions Left Atrium 3.25 cm M: 3.0 - 4.0 LA Volume 62.00 mL LA Volume Index 26.118565 mL/m2 (M/F) 16-34 M-Mode Dimensions RVDd 2.02 cm (0.9-2.6) LA Diam 3.39 cm (1.9-4.0) LVDd 5.87 cm (3.5-5.7) LVDs 3.20 cm (3.5-5.7) IVSd 0.91 cm (0.6-1.1) PWd 1.18 cm (0.6-1.1) EF (Teich) 76.10% EPSs 0.65 cm FS 45.50% EDV (Teich) 171.20 mL ESV (Teich) 41.00 mL LV Diastology E Decel Time 150 (160-240 msec) E/A Ratio 1.47 Aortic Valve SATISH Index 1.05 cm2/m2 AoV Peak Andrea. 129.0 (50-130 cm/s) AO Peak GR. 6.60 mmHg AO Mean GR. 3.30 (<5 mmHg) AO VTI 23.6 (18-25 cm) SATISH (VTI) 2.55 (2.5-4.5 cm2) Mitral Valve MV A Velocity 47.0 (40-130 cm/s) E/A Ratio 1.47 Tricuspid Valve TR P. Velocity 276.00 cm/s Left Ventricle The left ventricle is normal size. The left ventricular systolic function is normal. The left ventricular ejection fraction is within the normal range. There is normal left ventricular wall thickness. There is normal LV segmental wall motion. The left ventricular diastolic function is normal. LVEF is 55%. Right Ventricle The right ventricle is normal size. The right ventricular systolic function is normal. Atria The left atrium size is normal. The right atrium size is normal. There is no Doppler evidence of interatrial shunt. Aortic Valve Aortic valve opens well. There is no aortic valvular stenosis. No aortic regurgitation is present. Mitral Valve The mitral valve is normal in structure. No evidence of mitral valve stenosis. Trace mitral regurgitation. Tricuspid Valve Tricuspid valve is grossly normal in structure and function. Trace tricuspid regurgitation. There is insufficient TR jet to estimate RVSP. Pulmonic Valve The pulmonary valve is normal in structure. Trace pulmonic regurgitation. Great Vessels The aortic root is normal in size. IVC is normal in size and collapses >50% with inspiration. Pericardium There is no pericardial effusion. Other Information Study Quality: Adequate Conclusion Normal biventricular systolic function. No significant valvular stenosis or regurgitation. Electronically signed by : Silvina Atkins MD 12/19/2024 23:43:43
--- NOTE | 2024-12-11 10:30 | CA_ITS ---
APPROVED REPORT Exam: Exercise Treadmill Technologist: Vane Lazcano Ht: 5 ft 10 in Wt: 273 lbs BSA: 2.38 m2 Medical History Medications: buprenorphine-naloxone, vitamin D3, losartan, omeprazole, miralax. Stress Test Details Test: Lexiscan Reason for pharmacologic stress test: physical limitation. HR Resting HR: 84 bpm Max Heart Rate (APMHR): 183 bpm Max HR Achieved: 159 bpm Target HR (85% APMHR): 156 bpm % of APMHR: 87 Recovery HR: 107 bpm BP Resting BP: 147.0/86.0 mmHg Max BP: 184.0/92.0 mmHg Recovery BP: 142.0/86.0 mmHg ECG Stress ECG Conclusion Target at 4:30. Test stopped due to: target achieved. Symptoms: None. Arrhythmias/Ectopy: None. ST-T Changes: None. Electronically signed by : Silvina Atkins MD 12/15/2024 15:59:11
== END 2024-12-11 23:59 | disposition home or self-care (01) ==
LOC: RT 10:26
PROVIDERS: PCP Nurse Practitioner; Visit Provider Physician Assistant
DX: I42.2 Other hypertrophic cardiomyopathy (principal); I10 Essential (primary) hypertension; I49.9 Cardiac arrhythmia, unspecified
CPT/HCPCS: 93017; 93018; 93306

== ENCOUNTER 2025-01-06 15:38 | Outpatient (CLI) | payer MEDICARE, MEDICAID, SELFPAY ==
[2025-01-06 20:02] LABS: HIV Combo NEGATIVE (Negative)
[2025-01-07 07:28] LABS: RPR W/RFX Titers Nonreactive (Nonreactive)
--- OUTSIDE RECORDS SUMMARY | 2025-01-07 12:35 | XMS_ITS | Clinical Summary ---
Author Organization Healthcare Address [address] [place] [address] Care Team Providers Care Locomotive Boilermaker Name Role Phone Unavailable Primary Care Provider Unavailabl e Social History Tobacco Use Types Packs/Day Years Used Date Smoking Tobacco: Never Assessed Sex and Gender Information Value Date Recorded Sex Assigned at Not on file Legal Sex Male 3:35 PM EDT Gender Identity Not on file Sexual Orientation Not on file Last Filed Vital Signs Vital Sign Reading Time Taken Comments Blood Pressure 148/98 01/02/2023 3:38 PM EDT Pulse 75 01/02/2023 3:38 PM EDT Temperature - - Respiratory Rate - - Oxygen Saturation - - Inhaled Oxygen Concentration - - Weight 127 kg (280 lb) 01/02/2023 3:38 PM EDT Height 177.8 cm (5' 10 ) 01/02/2023 3:38 PM EDT Body Mass Index 40.18 01/02/2023 3:38 PM EDT Plan of Treatment Health Maintenance Due Date Last Done Comments [facility]-Depression Screening 1987 [facility]-HIV Screening 1987 [facility]-Hepatitis C Screening 1987 [facility]-/Child/Adol SDOH Screenings 1987 [facility]-Obesity Intervention 1993 [facility]-Varicella Vaccines (1 of 2 - 13+ 2-dose series) 2000 HPV Vaccines (1 - Male 3-dos e series) 2002 [facility]- SDOH Screenings 2005 [facility]-Adult SDOH Screenings 2005 [facility]-DTaP,Tdap,and Td Vaccine s (1 - Tdap) 2006 [facility]-Medicare Annual Wellness (AWV) 05/19/2021 05/19/2020, 04/03/2018, 07/05/2015 [id number] Vaccine (2 2023- season) 2024 01/14/2021 [facility]-Influenza Vaccine (Seaso n Ended) 2025 [facility]-Zoster Vaccines (1 of 2) 2037 [facility]-Hepatitis B Vaccines Completed 000, 04/18/1999, 03/18/1999 [facility]-HIB Vaccines Aged Out No longer e ligible based on patient's age to complete this topic [facility]-Hepatitis A Vaccines Aged Out No longer eligible based on patient's age to complete this topic [facility]-IPV Vaccines Aged Out No longer e ligible based on patient's age to complete this topic [facility]-Pneumococcal Vaccine: Pediatrics (0 to 5 Years) and At-Risk Patients (6 to 49 Years) Aged Out No longer eligible b ased on patient's age to complete this topic [facility]-Rotavirus Vaccines Aged Out No lo nger eligible based on patient's age to complete this topic [place] [address] [place] [address] MEDICARE
--- OUTSIDE RECORDS SUMMARY | 2025-01-07 12:36 | XMS_ITS | Clinical Summary ---
Author Organization [facility] Address [address] [place] [address] Phone Care Team Providers Care X Ray Developing Machine Operator Name Role Phone Unavailable Primary Care Provider Unavailabl e Allergies Active Allergy Reactions Criticality Noted Date Comments Haloperidol Lactate 01/16/2011 Tramadol 04/20/2013 Medications * This document contains information received from the source organization and may not represent a complete record from that organization. buprenorphine-n aloxone (SUBOXONE) 8-2 mg SL Film 1.5 films daily 45 Film 1 Active Additional Information Patient taking differently: 0.5 Film, 1 films daily, Reason: Other, Reported on 06/10/2021 ibuprofen (ADVIL;MOTRIN) 800 mg Oral Tablet Take 1 Tablet by mouth every 6 hours as needed for Pain. 50 Tablet 1 1 Active famotidine (PEPCID) 20 mg Oral Tablet TAKE 1 TABLET BY MOUTH TWICE A DAY 180 Tablet 2 2 Active Active Problems Patient Care Coordination No te Formatting of this note migh t be different from the original. Outreach via [employer] or Letter completed by Francy Root RN on 12/10/2023. Problem Noted Date Diagnosed Date Elevated LFTs 03/25/2021 Calculus of gallbladder without cholecystitis GERD (gastroesophageal reflux disease) 1 Hyperbilirubinemia 03/24/2021 Hypogonadism male 06/17/2020 Overview (06/17/2020): Followed by Endocrinology. Hyperprolactinemia 06/17/2020 Overview (06/17/2020): Followed by Endocrinology. Opioid use disorder, severe, dependence 06/09/20 Overview (08/05/2020): 08/05/20 Most recent random UDS and pill count showed BUP and BZD. Denies BZD use since April 2020. Reports taking up to 2 tabs daily rather that 1.5 tabs. Says he now has made the adjustment and is dosing correctly. 06/09/20 Substance use Hx: Started using opiate pain medicine recreationally at age 16. Max daily dose was 90 mg daily snorting. Last use: 2015. Started use heroin at age 26. Max daily dose 0.1 grams daily IV. Last use 2013. Suboxone, oral Has been to [facility] in [place] about 5 times since 10/2015. Gets suboxone from there when there and also gets them illicitly. Max dose: 8-2 mg 2 times daily when able. Over past week has only been able to take one daily. How lon years Last exposure: today Longest period of opiate sobriety has been [age] years of age. First started smoking marijuana at age 15. Used regularly till age 17. Since then only uses intermittently. Last use 12/2019. (type, quant, route): Valium, first use at age [age] years old. Uses intermittently. Frequency: 10-15 mg once or twice a week Longest sobriety: 10 years Progression: Slowed to zero Last exposure: 04/2020 Hx of Kratum use once in 2019. Remote use of spice several at age 23. Denies use of K2. Remote intermittent use of methamphetamine. Last use 2013. Denies use of prescription stimulants. Denies issues with alcohol. Started at age 15. Last use of alcohol was 2014. History of substance use related seizures: no (Tolerance: A state of adaptation in which exposure to a drug induces changes that result in diminution of one or more of the drug's effects over time.) Evidence of tolerance to any substance: yes Substances: opiates (Dependence: A state of adaptation that is manifested by a drug class specific withdrawal syndrome that can be produced by abrupt cessation, rapid dose reduction, decreasing blood level of the drug, and / or administration of an antagonist.) Evidence of dependence to any substance: yes Substances: opiates (Substance abuse: A maladaptive pattern of substance use leading to clinically significant impairment or distress, as manifested by one or more of the following, occuring with in a 12-month period: 1. Recurrent substance use resulting in a failure to fulfill major role obligations at work, school, or home. 2. Recurrent substance use in situations in which it is physically hazardous. 3. Recurrent substance-related legal problems. 4. Continued substance use despite having persistent or recurrent social or interpersonal problems caused or exacerbated by the effects of the substance. Evidence of substance abuse: yes Substances: polysubstance abuse. Evidence of opioid use disorder: yes (if yes insert DSM5 check list) DSMV Opioid Use Disorder diagnostic criteria Opioid Use Disorder requires at least 2 criteria be met within a 12 month period 1. Opioids are often taken in larger amounts or over a longer period of time than intended. yes 2. There is a persistent desire or unsuccessful efforts to cut down or control opioid use. yes 3. A great deal of time is spent in activities necessary to obtain the opioid, use the opiod, or recover from its effects. yes 4. Craving, or a strong desire to use opioids. yes 5. Recurrent opioid use resulting in failure to fulfill major role obligations at work, school, or home. yes 6. Continued opioid use despite having persistent or recurrent social or interpersonal problems caused or exacerbated by the effects of opioids. yes 7. Important social, occupational or recreational activities are given up or reduced because of opioid use. yes 8. Recurrent opioid use in situations in which it is physically hazardous. no 9. Continued use despite knowledge of having a persistent or recurrent physical or psychological problem that is likely to have been caused or exacerbated by opioids. yes 10. * Tolerance as defined by either of the following: A. A need for markedly increased amounts of opiods to achieve intoxication or desired effect. yes B. Markedly diminished effect with continued use of the same amount of an opioid. yes 11. * Withdrawal, as manifested by either of the following: A. The characteristic opioid withdrawal syndrome. yes B. The same (or a closely related) substance are taken to relieve or avoid withdrawal symptoms. no * This criterion is not considered to be met for those individuals taking opioids solely under appropriate medical supervision. Severity: Mild: 2-3 symptoms, Moderate: 4-5 symptoms, Severe: 6 or more symptoms History of opioid withdrawal: yes (If yes insert DSM5 criteria) History of overdose: Suicide attempt with salomon 2008 Treatment history: (inpatient / outpatient, MAT, 12 steps, location, dates) More then I can recall. Has done 12 steps. Has done counseling and is in therapy at [facility]. Is on disability for depression and generalized anxiety. [id number] has been to [facility] 5 times. [id number]: [facility] 2009 [facility] Longest inpt stay is [address] [facility]. Has never done IOP or after care. Consequences of drug use: Financial, mental health, relationships Currently intoxicated? (if yes list symptomology): Insight, motivation, readiness to change? yes Stage of change (precontemplative, contemplative, preparative, action, maintenance, relapse): change Past psychiatric history: (Dx, duration, course, treatment): More then I can rememeber. Lifetime hx of mood issues. PTSD, WILBERT, Depression, Tourettes, OCD SSRI and anti psychoitcs. Previous psych hospital admissions: yes Physical abuse hx: no Sexual history: Sexually active: yes Length of time with current partner: n/a Number of partners in lifetime: 20 Practices safe sex: no High risk sexual behavior? no STD hx: no Any current STD symptoms: no Sexual abuse hx: no Social recovery environment: Living situation: Rent apt Family / social support: none Relationships: (Single / / / ): Children: no Problems at school or work? no Relational problems with spouse or children? yes Involvement in violence? no Legal charges for public intox, altercations, possession or DUI? no Financial problems? yes Partner with substance use disorder? no School hx: Work hx: Substance dependence, in remission 04/03/2018 Overview (04/03/2018): Last suboxone Aug 2017. Last opioid/benzo 2015. OCD (obsessive compulsive disorder) 03/21/2016 Overview (04/03/2018): Constant worry - getting better. Generalized anxiety disorder 03/21/2016 Overview (04/03/2018): Mostly social/ large crowds. Stable - coping mechanism. Depression 11/01/2015 Resolved Problems Problem Noted Date Diagnosed Date Resolved Date Substance abuse in remission 11/01/2015 04/03/2018 Overview (11/01/2015): Previous heroin usage Immunizations Immunization Administration Dates Next Due Influenza Vaccine Quadrivalent 07/05/2015 Surgical History Surgery Date Site/Laterality Comments CHOLECYSTECTOMY, LAPAROSCOPIC 03/26/2021 Abdomen/N/A laparscopic cholecystectomy; Surgeon: Don Peña MD; Location: [facility]; Service: General Medical History Medical History Date Comments Heroin dependence (HCC) Former S uboxone, off since Aug 2017 Depression PTSD (post-traumatic stress disorder) - [place] Anxiety Tourette's OCD (obsessive compulsive disorder) GERD (gastroesophageal reflux disease) 03/25/2021 Family History Medical History Relation Name Comments No Known Problems Brother half Mental Illness Father Tourettes Syndrome Father Diabetes Mother No Known Problems Sister 1 half No Known Problems Sister 2 half Allergies Neg Hx Bleeding Prob Neg Hx Cancer Neg Hx Hearing Loss Neg Hx Heart Disease Neg Hx Migraines Neg Hx Thyroid Disease Neg Hx Relation Name Status Comments Brother half Alive Father Alive Mother Alive Sister 1 half Alive Sister 2 half Alive Social History Tobacco Use Types Packs/Day Years Used Date Smoking Tobacco: Former Cigarettes Q uit: 11/11/2016 Smokeless Tobacco: Current Snuff Tobacco Cessation:Ready to Q uit: No; Counseling Given: Yes Alcohol Use Standard Drinks/Week Comments No 0 (1 standard drink = 0.6 oz pur e alcohol) Overall Financial Resource Strain (CARDIA) Answe r Date Recorded How hard is it for you to pa y for the very basics like food, housing, medical care, and heating? Somewhat hard 03/28/2021 PHQ-2 Answer Date Recorded PHQ-2 Total Score 0 08/05/2020 [facility] [employer] [employer] [facility] - Occupational Stress Questionnaire Answer Date Recorded Do you feel stress - tense, restless, nervous, or anxious, or unable to sleep at night because your mind is troubled all the time - these days? Only a little 03/28/2021 Exercise Vital Sign Answer Date Recorde d On average, how many days pe r week do you engage in moderate to strenuous exercise (like a brisk walk)? 0 days 03/28/2021 On average, how many minutes do you engage in exercise at this level? 0 min 03/28/2021 Hunger Vital Sign Answer Date Recorded Within the past 12 months, y ou worried that your food would run out before you got the money to buy more. Sometimes true Within the past 12 months, t he food you bought just didn't last and you didn't have money to get more. Sometimes true PRAPARE - Transportation Answer Date Re corded In the past 12 months, has l ack of transportation kept you from medical appointments or from getting medications? No 03/01 In the past 12 months, has l ack of transportation kept you from meetings, work, or from getting things needed for daily living? No 03/28/2021 Sex and Gender Information Value Date Recorded Sex Assigned at Not on file Legal Sex Male 8:48 PM EDT Gender Identity Not on file Sexual Orientation Not on file Obstetrics History Last Filed Vital Signs Vital Sign Reading Time Taken Comments Blood Pressure 126/82 06/10/2021 3:10 PM EST Pulse 79 06/10/2021 3:10 PM EST Temperature 36.7 C (98 F) 06/10/2021 3:10 PM EST Respiratory Rate 18 06/10/2021 3:10 PM EST Oxygen Saturation 99% 06/10/2021 3:10 PM EST Inhaled Oxygen Concentration - - Weight 129.5 kg (285 lb 9.6 oz) 06/10/2021 3:10 PM EST Height 177.8 cm (5' 10 ) 06/10/2021 3:10 PM EST Body Mass Index 40.98 06/10/2021 3:10 PM EST Plan of Treatment Health Maintenance Due Date Last Done Comments DTaP/TDaP/Td (1 - Tdap) 08/28/2006 08/27/2006 Wellness Exam Medicare 05/20/2021 05/19/2020 COVID-19 Vaccine ( - season) 2024 01/14/2021 Influenza Vaccine (Season Ended) 2025 07/05/2015, 05/20/2010, 09/28/2009, Additional history exists Hepatitis B Vaccine Completed 04/07/2008, 07/05/2007, 08/27/2006, Additional history exists Meningococcal B Vaccine Aged Out No l onger eligible based on patient's age to complete this topic Pneumococcal Vaccine 0-49 Aged Out No longer eligible based on patient's age to complete this topic Goals Goal Patient Goal Type Associated Problems Recent Progress Patient-Stated? Author Maintain a healthy diet, exercise regularly and maintain an ideal body weight General No Elina Donovan Stay Tobacco Free Lifestyle No Elina Donovan Insurance * Guarantor: Reynaldo Handley Account Type Relation to Patient Date of Phone Billing Address SEP Personal Family Account Self 1985 [address] [place] [address] [employer] MEDICARE HMO MR * Guarantor: Reynaldo Handley Account Type Relation to Patient Date of Phone Billing Address Personal/Family Self 1985 [address] [place] [address] * Guarantor: Reynaldo Handley Account Type Relation to Patient Date of Phone Billing Address [facility] Self 1985 [address] [place] [address] Advance Directives For more information, please contact: [phone] * Full Code (Latest Code Status on File) Date Activated Date Inactivated Comments 11/18/2015 2:16 PM 11/19/2015 12:37 AM * Full Code Date Activated Date Inactivated Comments 02/07/2015 3:04 PM 02/07/2015 10:09 PM
[2025-01-08 06:10] LABS: HBsAg Screen Negative (Negative); HCV Ab Non Reactive (Non Reactive); Hep A Ab, IGM Negative (Negative); Hep B Core Ab, IgM Negative (Negative)
[2025-01-08 22:19] LABS: Neisseria gonorrhoeae, NAA Negative (Negative)
== END 2025-01-06 23:59 | disposition home or self-care (01) ==
LOC: LAB.DROPOF 01-07 12:33
PROVIDERS: PCP Nurse Practitioner; Visit Provider Nurse Practitioner
DX: N48.9 Disorder of penis, unspecified (principal); Z11.3 Encounter for screening for infections with a predominantly sexual mode of transmission
CPT/HCPCS: 80074; 86592; 87389; 87491; 87529; 87591

== ENCOUNTER 2025-05-07 15:00 | Outpatient (CLI) | payer MEDICARE, MEDICAID, SELFPAY ==
[2025-05-07 20:24] LABS: Hematocrit 44.4 % (42.0-52.0); Hemoglobin 14.8 g/dL (14.1-18.0); Immature Granulocytes % 0.3 %; Mean Corpuscular HGB Conc 33.3 g/dL (31.8-35.4); Mean Corpuscular Hemoglobin 28.9 pg (27.0-31.2); Mean Corpuscular Volume 86.7 fl (80-94); Nucleated Red Blood Cells % 0 %; Platelet Count 314 K/mm3 (142-424); Red Blood Count 5.12 M/mm3 (4.60-6.20); Red Cell Distribution Width-SD 40.8 fL; White Blood Count 6.6 K/mm3 (4.8-10.8)
[2025-05-07 21:38] LABS: Alanine Aminotransferase 21 U/L (12-78); Albumin Level 4.1 g/dl (3.5-5.0); Albumin/Globulin Ratio 1.6 (1.1-1.8); Alkaline Phosphatase 85 U/L (38-126); Amylase 132 U/L (30-110); Anion Gap 12.7 mEq/L (5-15); Aspartate Amino Transferase 25 U/L (17-59); Bilirubin,Total 0.7 mg/dl (0.2-1.3); Blood Urea Nitrogen 13 mg/dl (9-20); Calcium 9.3 mg/dl (8.4-10.2); Carbon Dioxide 31 mmol/L (22.0-30.0); Chloride 101 mmol/L (98-107); Creatinine,Serum 0.90 mg/dl (0.66-1.25); Estimated Glomerular Filt Rate 95 ml/min (>60); GFR (African American) 115 ML/MIN (>60); Globulin 2.6 g/dL (1.3-3.2); Glucose 56 mg/dl (74-100); Lipase 468 U/L (23-300); Potassium 4.7 mmoL/L (3.5-5.1); Sodium 140 mmol/L (136-145); Total Protein,Serum 6.7 g/dl (6.3-8.2)
[2025-05-07 22:08] LABS: Thyroid Stimulating Hormone 1.62 uIU/mL (0.465-4.68)
--- OUTSIDE RECORDS SUMMARY | 2025-05-08 02:13 | XMS_ITS | Clinical Summary ---
Author Organization Healthcare Address [address] [place] [address] Care Team Providers Care Glass Edger Name Role Phone Unavailable Primary Care Provider [...] of 2 - 13+ 2-dose series) 2000 [facility]- SDOH Screenings 2005 [facility]-Adult SDOH Screenings 2005 [facility]-DTaP,Tdap,and Td Vaccine s (1 - Tdap) 2006 HPV Vaccines (1 - 3-dose SCD M series) 2014 [facility]-Medicare Annual Wellness (AWV) 05/19/2021 05/19/2020, 04/03/2018, 07/05/2015 [id number] Vaccine ( season) 2025 01/14/2021 [facility]-Influenza Vaccine (#1) 2025 [facility]-Zoster Vaccines (1 of 2) 2037 [...] patient's age to complete this topic Insurance [facility] MEDICARE
== END 2025-05-07 23:59 ==
LOC: LAB.DROPOF 05-08 02:12
PROVIDERS: PCP Nurse Practitioner; Visit Provider Nurse Practitioner
DX: R19.7 Diarrhea, unspecified (principal)
CPT/HCPCS: 80053; 82150; 83690; 84443; 85025

== ENCOUNTER 2025-05-19 15:00 | Outpatient (CLI) | payer MEDICARE, MEDICAID, SELFPAY ==
[2025-05-19 19:05] LABS: Adenovirus F 40/41, stool Not Detected (NotDetected); Clostridium Difficile A/B, PCR Not Detected (NotDetected); Cyclospora Cayetanesis Not Detected (NotDetected); Plesimonas Shigalloides, PCR Not Detected (NotDetected); Salmonella, PCR Not Detected (NotDetected); Shiga-like toxin E coli Not Detected (NotDetected); Shigella Enterovasive E coli Not Detected (NotDetected); Vibrio, PCR Not Detected (NotDetected); Yersinia Entercolitica, PCR Not Detected (NotDetected)
[2025-05-19 19:36] LABS: Occult Blood,Stool Negative (Negative)
== END 2025-05-19 23:59 | disposition home or self-care (01) ==
LOC: LAB.DROPOF 05-20 14:23
PROVIDERS: PCP Nurse Practitioner; Visit Provider Nurse Practitioner
DX: R19.7 Diarrhea, unspecified (principal)
CPT/HCPCS: 82272; 87338; 87507; G0328

== ENCOUNTER 2025-06-11 09:59 | Outpatient (CLI) | payer MEDICARE, MEDICAID, SELFPAY ==
--- OUTSIDE RECORDS SUMMARY | 2025-06-11 10:06 | XMS_ITS | Clinical Summary ---
Author Organization Healthcare Address [address] [place] [address] Care Team Providers Care Axle Polisher Name Role Phone Unavailable Primary Care Provider [...] [facility]-HIV Screening 1987 [facility]-Hepatitis C Screening 1987 [facility]-Infant/Child/Adol SDOH Screenings 1987 [facility]-Obesity Intervention 1993 [facility]-Varicella Vaccines (1 of 2 - 13+ 2-dose series) 2000 [facility]- SDOH Screenings 2005 [facility]-Adult SDOH Screenings 2005 [facility]-DTaP,Tdap,and Td Vaccine s (1 - Tdap) 2006 HPV Vaccines (1 - 3-dose SCD M series) 2014 [facility]-Medicare Annual Wellness (AWV) 05/19/2021 05/19/2020, 04/03/2018, 07/05/2015 [id number] Vaccine ( season) 2025 01/14/2021 [facility]-Influenza Vaccine [...] patient's age to complete this topic Insurance [facility] MEDICARE
--- NOTE | 2025-06-11 10:15 | CT_ITS ---
FINAL REPORT TECHNIQUE: Oral and IV contrast enhanced exam This study was performed with techniques to keep radiation doses as low as reasonably achievable, (ALARA). Individualized dose reduction techniques using automated exposure control or adjustment of mA and/or kV according to the patient's size were employed. CLINICAL HISTORY: diarrhea, elevated pancreatic enzymes COMPARISON: None FINDINGS: Abdomen: Lung bases are clear. There are no CT findings of pancreatitis. The gallbladder is absent. Liver has an unremarkable CT appearance. There is moderate extrahepatic ductal dilatation, with the common duct measuring 14 mm in size, probably secondary to post cholecystectomy change. The spleen, pancreas and adrenal glands are unremarkable. Kidneys show no mass or obstruction. No bowel obstruction or fluid collection is seen. Pelvis: The appendix is normal in appearance. Pelvic bowel loops are unremarkable. No fluid collection or adenopathy is seen. The bladder and prostate are unremarkable. IMPRESSION: 1. No CT findings of pancreatitis. 2. Moderate extrahepatic ductal dilatation probably post cholecystectomy change. Reviewed, Interpreted and Dictated by Yvrose Toledo MD Transcribed by Paula Yoon Authenticated and . [facility]
[2025-06-11 10:30] LABS: Blood Urea Nitrogen 13 mg/dl (9-20); Creatinine,Serum 0.90 mg/dl (0.66-1.25); Estimated Glomerular Filt Rate 95 ml/min (>60); GFR (African American) 115 ML/MIN (>60)
[2025-06-11] MEDS: BARIUM SULFATE(READI-CAT2);450ML BOTTLE 450 ML PO (10:54)
[2025-06-11] MEDS: SODIUM CHLORIDE 0.9% 10ML SYR (RAD ONLY) 10 ML IV (10:54)
[2025-06-11] MEDS: IOPAMIDOL-370 (76%);100ML BOTTLE 75 ML IV (10:55)
== END 2025-06-11 23:59 | disposition home or self-care (01) ==
LOC: RAD 09:59
PROVIDERS: PCP Nurse Practitioner; Visit Provider Nurse Practitioner
DX: K83.8 Other specified diseases of biliary tract (principal); R19.7 Diarrhea, unspecified; R74.8 Abnormal levels of other serum enzymes; Z90.49 Acquired absence of other specified parts of digestive tract
CPT/HCPCS: 36415; 74177; 82565; 84520; Q9967

== ENCOUNTER 2025-07-09 15:43 | Outpatient (CLI) | payer MEDICARE, MEDICAID, SELFPAY ==
[2025-07-09 18:43] LABS: Hematocrit 44.4 % (42.0-52.0); Hemoglobin 14.8 g/dL (14.1-18.0); Immature Granulocytes % 0 %; Mean Corpuscular HGB Conc 33.3 g/dL (31.8-35.4); Mean Corpuscular Hemoglobin 28.8 pg (27.0-31.2); Mean Corpuscular Volume 86.5 fl (80-94); Nucleated Red Blood Cells % 0 %; Platelet Count 327 K/mm3 (142-424); Red Blood Count 5.13 M/mm3 (4.60-6.20); Red Cell Distribution Width-SD 39.8 fL; White Blood Count 6.4 K/mm3 (4.8-10.8)
[2025-07-09 19:03] LABS: Chloride 101 mmol/L (98-107); Potassium 3.8 mmoL/L (3.5-5.1); Sodium 141 mmol/L (136-145)
[2025-07-09 19:05] LABS: Amylase 78 U/L (30-110); Anion Gap 14.8 mEq/L (5-15); Blood Urea Nitrogen 14 mg/dl (9-20); Carbon Dioxide 29 mmol/L (22.0-30.0); Creatinine,Serum 0.90 mg/dl (0.66-1.25); Estimated Glomerular Filt Rate 94 ml/min (>60); GFR (African American) 114 ML/MIN (>60)
[2025-07-09 19:06] LABS: Alanine Aminotransferase 20 U/L (12-78); Alkaline Phosphatase 79 U/L (38-126); Aspartate Amino Transferase 25 U/L (17-59); Bilirubin,Total 0.5 mg/dl (0.2-1.3); Calcium 9.1 mg/dl (8.4-10.2); Glucose 93 mg/dl (74-100); Lipase 79 U/L (23-300); Total Protein,Serum 7.1 g/dl (6.3-8.2)
[2025-07-09 19:18] LABS: 25-OH Vitamin D, Total 26.8 ng/mL (30-100)
[2025-07-09 19:56] LABS: Vitamin B12 312 pg/mL (239-931)
[2025-07-09 20:01] LABS: Albumin Level 4.4 g/dl (3.5-5.0); Albumin/Globulin Ratio 1.6 (1.1-1.8); Globulin 2.7 g/dL (1.3-3.2)
== END 2025-07-09 23:59 | disposition home or self-care (01) ==
LOC: LAB.DROPOF 07-10 12:31
PROVIDERS: PCP Nurse Practitioner; Visit Provider Nurse Practitioner
DX: E55.9 Vitamin D deficiency, unspecified (principal); R74.8 Abnormal levels of other serum enzymes; E53.8 Deficiency of other specified B group vitamins
CPT/HCPCS: 80053; 82150; 82306; 82607; 83690; 85025